=== PATIENT | female | born 1995 | race Caucasian/White ===

== ENCOUNTER 2023-11-11 12:23 | Emergency (ER) | payer MEDICAID ==
[~2023-11-11] VITALS: Ht 157.5 cm; Wt 87.0 kg
[2023-11-11 12:41] VITALS: O2SAT 97
[2023-11-11 13:38] LABS: BASOPHILS % 0.4 % (0.0-2.0); HEMATOCRIT. 40.2 % (36.0-48.0); HEMOGLOBIN. 12.8 g/dL (12.0-16.0); LYMPHOCYTES % 13.8 % (20.0-50.0); MEAN CORPUSCULAR HEMOGLOBIN 26.4 pg (28.0-32.0); MEAN CORPUSCULAR VOLUME 82.8 fL (81.0-99.0); MEAN PLATELET VOLUME 8.5 fl (7.4-10.4); MONOCYTES % 6.5 % (2.0-8.0); NEUTROPHILS % 78.3 % (40.0-76.0); PLATELET 294 x1000/uL (130-400); RED BLOOD CELL COUNT 4.85 mill/uL (4.2-5.4); RED CELL DISTRIBUTION WIDTH 15.2 % (11.6-14.6); WHITE BLOOD COUNT 12.6 x1000/uL (4.5-11.0)
[2023-11-11 13:48] LABS: PROTHROMBIN TIME 10.7 sec (9.6-11.0)
[2023-11-11 13:50] LABS: CHLORIDE 104 mEq/L (98-107); POTASSIUM 3.4 mEq/L (3.5-5.1); SODIUM 138 mEq/L (136-145)
[2023-11-11 13:51] LABS: CALCIUM 9.5 mg/dL (8.7-10.4); CARBON DIOXIDE 28 mEq/L (21-32)
[2023-11-11 13:56] LABS: CREATININE 0.7 mg/dL (0.6-1.0); GLUCOSE 98 mg/dL (70-105); UREA NITROGEN BLOOD 11 mg/dL (9-23)
[2023-11-11] MEDS: LIDOCAINE HCL/PF 1% 10 MG/ML 5ML VIAL INFIL ONE (15:45)
[2023-11-11] MEDS ORDERED: AMOX1TAB16 MT (15:52)
[2023-11-11] MEDS ORDERED: IBUP-2029 PO (15:52)
[2023-11-11] MEDS ORDERED: SULF1TAB48 MT (15:52)
[2023-11-11] MEDS: CEFTRIAXONE SODIUM 1G VIAL IM ONE (17:02)
[2023-11-11] MEDS: IBUPROFEN 600MG TABLET PO STA (17:02)
[2023-11-11 17:15] VITALS: BP 122/79; PULSE 113; RESP 18; TEMP 37.28076; O2SAT 99
[2023-11-11 18:07] LABS: CLARITY URINE CLOUDY (CLEAR); COLOR URINE YELLOW (YELLOW); GLUCOSE URINE NEGATIVE (NEGATIVE); KETONES URINE NEGATIVE (NEGATIVE); LEUKOCYTE ESTERASE URINE 1+ (NEGATIVE); NITRITE URINE NEGATIVE (NEGATIVE); OCCULT BLOOD URINE TRACE (NEGATIVE); PROTEIN URINE NEGATIVE (NEGATIVE); SPECIFIC GRAVITY URINE 1.023 (1.005-1.030); UROBILINOGEN URINE 0.2 E.U./dL (0.2-1.0)
[2023-11-11 18:43] LABS: BACTERIA URINE 1+; RBC URINE 0-2 /hpf (0-2); SQUAMOUS EPITHELIAL CELL URINE 1+ /lpf (RARE/1+)
== END 2023-11-11 17:15 | disposition home or self-care (01) ==
LOC: ER 12:33
DX: S90.121A Contusion of right lesser toe(s) without damage to nail, initial encounter (principal); X58.XXXA Exposure to other specified factors, initial encounter; Y93.89 Activity, other specified; Y92.89 Other specified places as the place of occurrence of the external cause; Y99.8 Other external cause status
CPT/HCPCS: 80048; 81003; 81025; 83605; 85025; 85610; 36415; 73630; 96372; 99284; J0696; J3490; Z7610 ×2

== ENCOUNTER 2024-04-15 09:31 | Emergency (ER) | payer MEDICAID ==
[~2024-04-15] VITALS: Ht 157.5 cm; Wt 91.0 kg
[~2024-04-15 09:31] MED LIST: AMOX1TAB16 MT; IBUP-2029 PO; SULF1TAB48 MT
[2024-04-15 09:53] VITALS: TEMP 36.7; O2SAT 98
[2024-04-15 10:21] LABS: BASOPHILS % 0.5 % (0.0-2.0); HEMATOCRIT. 40.1 % (36.0-48.0); HEMOGLOBIN. 13.6 g/dL (12.0-16.0); LYMPHOCYTES % 25.3 % (20.0-50.0); MEAN CORPUSCULAR HEMOGLOBIN 28.4 pg (28.0-32.0); MEAN CORPUSCULAR HGB CONC 33.9 g/dL (31.0-37.0); MEAN CORPUSCULAR VOLUME 83.7 fL (81.0-99.0); MEAN PLATELET VOLUME 8.8 fl (7.4-10.4); NEUTROPHILS % 67.2 % (40.0-76.0); PLATELET 278 x1000/uL (130-400); RED CELL DISTRIBUTION WIDTH 15.1 % (11.6-14.6); WHITE BLOOD COUNT 8.8 x1000/uL (4.5-11.0)
[2024-04-15 10:29] VITALS: BP 156/100; PULSE 69; RESP 18
[2024-04-15 10:29] LABS: CHLORIDE 103 mEq/L (98-107); POTASSIUM 3.6 mEq/L (3.5-5.1); SODIUM 140 mEq/L (136-145)
[2024-04-15] MEDS: ONDANSETRON HCL 4MG/2ML INJ IV STA (10:29)
[2024-04-15] MEDS: KETOROLAC 30MG/ML VIAL IV STA (10:29)
[2024-04-15 10:30] LABS: CARBON DIOXIDE 27 mEq/L (21-32)
[2024-04-15 10:35] LABS: CREATININE 0.7 mg/dL (0.6-1.0); GLUCOSE 115 mg/dL (70-105)
[2024-04-15 10:36] LABS: UREA NITROGEN BLOOD 11 mg/dL (9-23)
[2024-04-15 10:37] LABS: ALANINE AMINOTRANSFERASE 425 IU/L (10-49); ALBUMIN 4.9 g/dL (3.2-4.8); BILIRUBIN DIRECT 0.2 mg/dL (<=3.0)
[2024-04-15 10:38] LABS: BILIRUBIN TOTAL 0.5 mg/dL (0.1-1.0); PROTEIN TOTAL 8.6 g/dL (6.0-8.3)
[2024-04-15 10:41] LABS: ASPARTATE AMINOTRANSFERASE 240 IU/L (<34)
[2024-04-15 10:51] LABS: HCG SCREEN NEGATIVE
[2024-04-15 11:15] LABS: CLARITY URINE TURBID (CLEAR); COLOR URINE RED (YELLOW); GLUCOSE URINE NEGATIVE (NEGATIVE); KETONES URINE NEGATIVE (NEGATIVE); LEUKOCYTE ESTERASE URINE 2+ (NEGATIVE); NITRITE URINE NEGATIVE (NEGATIVE); OCCULT BLOOD URINE 3+ (NEGATIVE); PH URINE >=9.0 (4.5-8.0); PROTEIN URINE 2+ (NEGATIVE); SPECIFIC GRAVITY URINE 1.023 (1.005-1.030); UROBILINOGEN URINE 0.2 E.U./dL (0.2-1.0)
[2024-04-15 11:39] LABS: RBC URINE TNTC /hpf (0-2); SQUAMOUS EPITHELIAL CELL URINE 1+ /lpf (RARE/1+)
[2024-04-15] MEDS ORDERED: NITR100C PO (11:39)
[2024-04-15 11:40] LABS: BACTERIA URINE 1+
[2024-04-15 11:41] LABS: WBC URINE 0-2 /hpf (0-2)
[2024-04-15 11:42] LABS: TRICHOMONAS URINE 2+
[2024-04-15] MEDS ORDERED: TOPUD PO (11:44)
== END 2024-04-15 11:58 | disposition home or self-care (01) ==
LOC: ER 09:31
DX: K80.20 Calculus of gallbladder without cholecystitis without obstruction (principal); N39.0 Urinary tract infection, site not specified; Z86.61 Personal history of infections of the central nervous system; Z79.899 Other long term (current) drug therapy
CPT/HCPCS: 80076; 80048; 81003; 81025; 84703; 83690; 85025; 36415; 76705; 96374; 96375; 99285; J1885; J2405; Z7610